=== PATIENT | male | born 1970 | race Caucasian/White ===

== ENCOUNTER → 2020-06-03 | Outpatient (CLI) | payer OTHER ==
--- NOTE | 2020-06-03 13:46 | RAD ---
XR LUMBAR SPINE 2-3V History: Back injury 20 years ago. Comparison: None. Technique: AP and lateral views of the lumbar spine. Findings: There are 5 nonrib-bearing lumbar vertebral segments. Mild levoconvex curvature. No spondylolysis. Mi ld retrolisthesis of L2 on L3. Mild joint space narrowing L2-L3 and L5-S1. Mild multilevel facet hype rtrophy. Surgical clips project in the left upper quadrant consistent with cholecystectomy. Mild scle rosis of the left sacroiliac joint. Impression: 1. Mild multilevel degenerative changes of the lumbar spine greatest at L2-L3 and L5-S1. Electronically signed by: Dylan Medina MD (06/03/2020 1:43 PM) [facility]
== END ==
LOC: RAD 09:21
PROVIDERS: ATTEND Orthopaedic Surgery
DX: M47.817 Spondylosis without myelopathy or radiculopathy, lumbosacral region (principal); M48.07 Spinal stenosis, lumbosacral region; M43.17 Spondylolisthesis, lumbosacral region; S92.415A Nondisplaced fracture of proximal phalanx of left great toe, initial encounter for closed fracture; X58.XXXA Exposure to other specified factors, initial encounter; Y93.89 Activity, other specified; Y92.89 Other specified places as the place of occurrence of the external cause; Y99.8 Other external cause status
CPT/HCPCS: 72100

== ENCOUNTER 2021-04-21 16:47 | Emergency (ER) | payer SELFPAY ==
[~2021-04-21] VITALS: Ht 180.3 cm; Wt 62.8 kg
--- NOTE | 2021-04-21 18:37 | RAD ---
EXAMINATION: Chest radiograph. VIEWS: 1 COMPARISON: None INDICATION:50 years, Male, weakness. FINDINGS: Normal cardiomediastinal silhouette. No focal consolidation. No pleural effusion or pneumothorax. No acute osseous process. IMPRESSION: No acute cardiopulmonary process. Electronically signed by: Ingris Norman MD (04/21/2021 6:35 PM) [facility]
[2021-04-21 19:14] LABS: INFLUENZA A PATIENT NEGATIVE (NEGATIVE); INFLUENZA B PATIENT NEGATIVE (NEGATIVE)
--- NOTE | 2021-04-21 19:34 | PHYS DOC ---
Past Medical History Past Surgical History: Cholecystectomy Smoking Status: Current Every Day Smoker Additional Information: 1 PPD Alcohol Use: None General Adult EDM: Chief Complaint: WEAKNESS/GENERALIZED HPI: HPI: Patient is a 50 year old male who presents to the ED today complaining of shortness of breath, weakness, diarrhea, symptoms began 3 days ago. Patient states he has been around people with COVID19, patient stated he is unvaccinated against COVID-19. Denies any abdominal pain, chest pain. Review of Systems: Review of Systems: Constitutional: Reports weakness. Denies fever or chills. [] Eyes: Denies change in visual acuity. [] HENT: Denies nasal congestion or sore throat. [] Respiratory: Reports shortness of breath. Denies cough Cardiovascular: Denies chest pain or edema. [] GI: Reports diarrhea. Denies abdominal pain, nausea, vomiting, bloody stools : Denies dysuria. [] Musculoskeletal: Denies back pain or joint pain. [] Integument: Denies rash. [] Neurologic: Denies headache, focal weakness or sensory changes. [] Psychiatric: Denies depression or anxiety. [] Heart Score: C/O Chest Pain: N/A Risk Factors: Risk Factors: DM, Current or recent (<one month) smoker, HTN, HLP, family history of CAD, obesity. Risk Scores: Score 0 - 3: 2.5% MACE over next 6 weeks - Discharge Home Score 4 - 6: 20.3% MACE over next 6 weeks - Admit for Clinical Observation Score 7 - 10: 72.7% MACE over next 6 weeks - Early Invasive Strategies Allergies: Allergies: Allergies Coded Allergies Type Severity Reaction Last Updated Verified No Known Drug Allergies 04/21/21 No Physical Exam: PE: Constitutional: Well developed, well nourished, no acute distress, non-toxic appearance. [] HENT: Normocephalic, atraumatic, bilateral external ears normal, oropharynx moist, no oral exudates, nose normal. [] Eyes: PERRLA, EOMI, conjunctiva normal, no discharge. [] Neck: Normal range of motion, no tenderness, supple, no stridor. [] Cardiovascular:Heart rate regular rhythm, no murmur [] Lungs & Thorax: Bilateral breath sounds clear to auscultation [] Abdomen: Bowel sounds normal, soft, no tenderness, no masses, no pulsatile masses. [] Skin: Warm, dry, no erythema, no rash. [] Back: No tenderness, no CVA tenderness. [] Extremities: No tenderness, no cyanosis, no clubbing, ROM intact, no edema. [] Neurologic: Alert and oriented X 3, normal motor function, normal sensory function, no focal deficits noted. [] Psychologic: Affect normal, judgement normal, mood normal. [] Current Patient Data: Labs: Laboratory Tests Test 04/21/21 18:14 Influenza Type A Antigen Negative (NEGATIVE) Influenza Type B Antigen Negative (NEGATIVE) SARS-CoV-2 Antigen (Rapid) Positive (NEGATIVE) *A Vital Signs: Vital Signs Date Time Temp Pulse Resp B/P (MAP) Pulse Ox O2 Delivery O2 Flow Rate FiO2 04/21/21 17:45 97.4 97 20 108/73 (85) 97 Room Air 97.4 EKG: EKG: [] Radiology/Procedures: Radiology/Procedures: []PROCEDURE: CHEST AP ONLY EXAMINATION: Chest radiograph. VIEWS: 1 COMPARISON: None INDICATION:50 years, Male, weakness. FINDINGS: Normal cardiomediastinal silhouette. No focal consolidation. No pleural effusion or pneumothorax. No acute osseous process. IMPRESSION: No acute cardiopulmonary process. Electronically signed by: Ingris Norman MD (04/21/2021 6:35 PM) [facility] DICTATED and SIGNED BY: INGRIS NORMAN MD DATE: 04/21/21 [id number] 0 Course & Med Decision Making: Course & Med Decision Making Pertinent Labs and Imaging studies reviewed. (See chart for details) Positive for COVID19. Supportive care measures recommended. Discharge to home. Dom Disclaimer: [employer] Disclaimer: This electronic medical record was generated, in whole or in part, using a voice recognition dictation system. Departure Departure Impression: Primary Impression: Lab test positive for detection of COVID-19 virus Additional Impressions: Weakness Diarrhea Qualified Codes: R19.7 - Diarrhea, unspecified Disposition: HOME / SELF CARE / HOMELESS Condition: STABLE Referrals: NO PCP (PCP) follow up with your doctor in 1 week Patient Instructions: Viral Infections Additional Instructions: You tested positive for COVID-19. Please quarantine yourself for 10 days. Take Tylenol or Motrin for pain or fever, rest, push fluids, maintain good hand hygiene. Follow up with your doctor in 1-2 weeks BETY GOODWIN APRN Apr 21, 2021 19:34
[2021-04-21 19:41] VITALS: BP 103/72
== END 2021-04-21 19:41 | disposition home or self-care (01) ==
LOC: ER 16:47
DX: U07.1 COVID-19 (principal); R19.7 Diarrhea, unspecified; R53.1 Weakness; F17.200 Nicotine dependence, unspecified, uncomplicated
CPT/HCPCS: 71045; 87428; 99284